=== PATIENT | male | born 1970 | race Caucasian/White ===

== ENCOUNTER → 2023-06-26 | Emergency (ER) | payer SELFPAY ==
[~2023-06-26] MED LIST: DIAZEPAM 10 MG/2 ML INJ SYRINGE ONE; HALOPERIDOL LACT 5 MG/ML INJ ONE; INSULIN REGULAR (HUMAN) 100 UNIT/ML ONE; KETOROLAC 30 MG/ML INJ ONE; MORPHINE 4 MG/ML SYR ONE; NA CHLORIDE 0.9% 1,000 ML ONE; PROMETHAZINE 25 MG TABLET ONE
[2023-06-26 03:34] LABS: Absolute Basophils 0.1 K/uL (0-0.5); Absolute Eosinophils 0.2 K/uL (0-0.5); Absolute Lymphocytes (CBC) 1.6 K/uL (0.7-4.9); Absolute Monocytes 0.5 K/uL (0.1-1.3); Absolute Neutrophil 3.9 K/uL (1.8-8.0); Basophils % 1.9 % (0-1.3); Eosinophils % 3.1 % (0-4.4); Hematocrit 38.8 % (39.6-49.0); Lymphocytes % 25.2 % (15.3-44.8); MCH 30.4 pg (27.0-35.0); MCHC 33.4 g/dL (32.0-36.0); MCV 90.8 fL (80-100); MPV 8.8 fL (7.6-11.3); Monocytes % 7.9 % (3.3-12.3); Neutrophils % 61.9 % (41.7-73.7); Platelets 230 thou/uL (152-406); RBC Red Blood Cell Count 4.27 M/uL (4.33-5.43); Red Cell Distribution Width 13.2 % (12.1-15.2)
[2023-06-26 03:45] LABS: Albumin 3.2 g/dL (3.4-5.0); Albumin/Globulin Ratio 0.8 (1.1-1.8); Anion Gap 14.1 mEq/L (5.0-15.0); Bilirubin Total 0.3 mg/dL (0.2-1.0); Globulin 3.9 g/dL (2.3-3.5); Potassium 4.1 mEq/L (3.5-5.1); Protein, Total 7.1 g/dL (6.4-8.2)
--- NOTE | 2023-06-26 04:47 | EDPHYS ---
Physician Documentation [facility] Name: Pepe Cabrera Age: 52 yrs Sex: Male : 1970 Arrival Date: 06/26/2023 Time: 02:11 Bed 16 Private MD: ED Physician Geraldo Gonzalez HPI: 06/25 02:29 This 52 yrs old Male presents to ER via Unassigned with complaints of Back sp4 Pain. 02:35 52-year-old male presents with acute onset right lower back pain with radiation down sp4 the right leg. Pain started acutely today after patient was doing melecio work at home. . 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 - Social history:: Smoking status: Patient denies any tobacco usage or history of. Patient/guardian denies using alcohol, street drugs. - Family history:: not pertinent. ROS: 02:35 Constitutional: Negative for fever, chills, and weight loss, positive for back pain sp4 02:35 All other systems are negative, Exam: 02:35 Constitutional: This is a well developed, well nourished patient who is awake, alert, sp4 and in no acute distress. Head/Face: Normocephalic, atraumatic. Eyes: Pupils equal round and reactive to light, extra-ocular motions intact. Lids and lashes normal. Conjunctiva and sclera are not injected. Cornea within normal limits. Periorbital areas with no swelling, redness, or edema. ENT: Nares patent. No nasal discharge, no septal abnormalities noted. Tympanic membranes are normal and external auditory canals are clear. Oropharynx with no redness, swelling, or masses, exudates, or evidence of obstruction, uvula midline. Mucous membranes moist. Neck: Trachea midline, no thyromegaly or masses palpated, and no cervical lymphadenopathy. Supple, full range of motion without nuchal rigidity, or vertebral point tenderness. Chest/axilla: Normal chest wall appearance and motion. Nontender with no deformity. No lesions are appreciated. Cardiovascular: Regular rate and rhythm with a normal S1 and S2. No gallops, murmurs, or rubs. Normal PMI, no JVD. No pulse deficits. Respiratory: Lungs have equal breath sounds bilaterally, clear to auscultation and percussion. No rales, rhonchi or wheezes noted. No increased work of breathing, no retractions or nasal flaring. Abdomen/GI: Soft, with normal bowel sounds. No distension or tympany. No guarding or rebound. No evidence of tenderness throughout. Back: No spinal tenderness. No costovertebral tenderness. Skin: Warm, dry with normal turgor. Normal color with no rashes, no lesions, and no evidence of cellulitis. MS/ Extremity: Pulses equal, no cyanosis. Neurovascular intact. Full, normal range of motion. Neuro: Awake and alert, GCS 15, oriented to person, place, time, and situation. Cranial nerves II-XII grossly intact. Motor strength 5/5 in all extremities. Sensory grossly intact. Psych: Awake, alert, with orientation to person, place and time. Behavior, mood, and affect are within normal limits Vital Signs: 02:24 BP 133 / 74; Pulse 107; Resp 18; Temp 97.8; Pulse Ox 97% on R/A; Weight 108.86 kg; pf1 Height 6 ft. 0 in. ; Pain 10/10; 03:03 BP 128 / 81; Pulse 107; Pulse Ox 95% on R/A; Pain 10/10; tm6 03:46 BP 144 / 83; Pulse 104; Pulse Ox 97% on R/A; Pain 9/10; tm6 04:28 BP 146 / 77; Pulse 103; Pulse Ox 96% on R/A; Pain 8/10; tm6 05:21 BP 109 / 82; Pulse 107; Resp 19; Temp 98(TE); Pulse Ox 96% on R/A; Pain 7/10; tm6 02:24 Body Mass Index 32.55 (108.86 kg, 182.88 cm) pf1 02:24 Pain Scale: Adult pf1 03:03 Pain Scale: Adult tm6 03:46 Pain Scale: Adult tm6 04:28 Pain Scale: Adult tm6 05:21 Pain Scale: Adult tm6 [place] Coma Score: 02:35 Eye Response: spontaneous(4). Motor Response: obeys commands(6). Verbal Response: sp4 oriented(5). Total: 15. MDM: 02:35 Patient medically screened. sp4 04:42 Differential diagnosis: Fatigue Fracture Myeloma Osteoporosis ruptured disc, Scoliosis. sp4 Data reviewed: vital signs, nurses notes. Consideration of Admission/Observation Escalation of care including admission/observation considered. ED course: EXAM: CTAbdomen and Pelvis Without Intravenous Contrast CLINICAL HISTORY: spinal and pelvic pain TECHNIQUE: Axial computed tomography images of the abdomen and pelvis without intravenous contrast. Sagittal and coronal reformatted images were created and reviewed. This CT exam was performed using one or more of the following dose reduction techniques: automated exposure control, adjustment of the mA and/or kV according to patient size, and/or use of iterative reconstruction technique. COMPARISON: CTAbdomen Pelvis dated 04/03/2017 FINDINGS: Lung bases: Right basilar subsegmental atelectasis/pleural parenchymal scar. Heart: Coronary artery calcification. ABDOMEN: Liver: The liver is enlarged. Gallbladder and bile ducts: Prior cholecystectomy. Mild biliary dilatation similar to the prior. The common duct measures 10 mm in maximum diameter. Pancreas: Mild pancreatic parenchymal atrophy. No ductal dilation. Spleen: Unremarkable. No splenomegaly. Adrenals: Unremarkable. No mass. Kidneys and ureters: Bilateral perinephric stranding similar to the prior. Small bilateral renal calculi. No hydronephrosis. Stomach and bowel: Moderate stool. No bowel obstruction. No appreciable mucosal thickening. PELVIS: Appendix: Normal caliber appendix. No findings to suggest acute appendicitis. Bladder: The urinary bladder is distended. No stones. Reproductive: Unremarkable as visualized. ABDOMEN and PELVIS: Intraperitoneal space: Unremarkable. No free air. No significant fluid collection. Bones/joints: Multilevel spondylosis. No acute fracture. No dislocation. Soft tissues: Unremarkable. Vasculature: Mild to moderate atherosclerotic disease. No abdominal aortic aneurysm. Lymph nodes: Unremarkable. No enlarged lymph nodes. IMPRESSION: 1. No acute process identified within the abdomen and pelvis. 2. Other findings as above.. ED course: Sugars controlled with IV insulin. Patient has no sign of lower extremity paralysis or other has sign of acute back sprain with some component of right-sided sciatica. Patient is able to stand up and tolerate weight on the right leg. Patient is stable for discharge home with p.o. as needed tramadol ibuprofen and also Flexeril. Will advise 3 days of bedrest. 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 . 06/25 02:35 Order name: CBC with Diff; Complete Time: 03:48 sp4 06/25 02:35 Order name: CMP; Complete Time: 03:48 sp4 06/25 04:40 Order name: Glucose, Ancillary Testing; Complete Time: 04:42 EDMS 06/25 05:19 Order name: Glucose, Ancillary Testing EDMS 06/25 02:55 Order name: CT Abd/Pelvis - Without Contrast sp4 06/25 02:35 Order name: IV Saline Lock; Complete Time: 02:54 sp4 06/25 02:35 Order name: Labs collected and sent; Complete Time: 02:54 sp4 Administered Medications: 02:59 Drug: morphine IVP or IV 8 mg IVP once over 4 mins Route: IVP; Infused Over: 4 mins; tm6 Site: right wrist; 04:46 Follow up: Response: No adverse reaction; No change in condition tm6 02:59 Drug: Diazepam IVP 5 mg IVP once Route: IVP; Site: right wrist; tm6 04:45 Follow up: Response: No adverse reaction tm6 02:59 Drug: Ketorolac IVP 30 mg IVP once Route: IVP; Site: right wrist; tm6 04:46 Follow up: Response: No adverse reaction; No change in condition tm6 03:00 Drug: NS 0.9% IV 1000 ml IV at 1 bolus Per protocol; 1000 mL bolus Route: IV; Rate: 1 tm6 bolus; Site: right wrist; 04:45 Follow up: IV Status: Completed infusion; IV Intake: 1000ml tm6 03:58 Drug: Insulin Regular Human IVP 10 units IVP once {Co-Signature: pf1 (Ashley Bain tm6 RN).} Route: IVP; Site: right wrist; 04:15 Drug: morphine IVP or IV 4 mg IVP once over 4 mins Route: IVP; Infused Over: 4 mins; tm6 Site: right wrist; 04:46 Follow up: Response: No adverse reaction; Pain is decreased tm6 04:15 Drug: Haloperidol IVP 5 mg IVP once Route: IVP; Site: right hand; tm6 04:46 Follow up: Response: No adverse reaction tm6 04:25 Drug: Promethazine PO 25 mg PO once Route: PO; tm6 Point of Care Testing: Blood Glucose: 04:29 Blood Glucose: 282 mg/dL; tm6 Ranges: Critical Glucose Levels:Adult <50 mg/dl or >400 mg/dl <40 mg/dl or >180 mg/dl Disposition Summary: 06/26/23 04:46 Discharge Ordered Notes: Location: Home sp4 Problem: new sp4 Symptoms: have improved sp4 Condition: Stable sp4 Diagnosis - Low back pain sp4 - Type 2 diabetes mellitus with hyperglycemia sp4 - Lower back pain, acute right sciatica, acute back sprain, hyperglycemia associated sp4 with diabetes Followup: sp4 - With: Private Physician - When: 7 - 10 days - Reason: Recheck today's complaints Discharge Instructions: - Discharge Summary Sheet sp4 - Acute Back Pain, Adult sp4 Forms: - Patient Portal Instructions sp4 Prescriptions: - Ibuprofen 800 mg Oral Tablet - take 1 tablet ORAL route every 8 hours As needed take with food; 30 tablet; sp4 Refills: 0, Product Selection Permitted - Cyclobenzaprine 10 mg Oral Tablet - take 1 tablet ORAL route every 8 hours As needed; 30 tablet; Refills: 0, sp4 Product Selection Permitted - Tramadol 50 mg Oral tablet - take 1 tablet ORAL route every 8 hours as needed; 20 tablet; Refills: 0, sp4 Product Selection Permitted Signatures: Dispatcher [employer] Ashley Tate RN RN pf1 Geraldo Gonzalez MD MD sp4 Shreyas Rivero RN RN tm6 Ashley Bain RN pf1
--- NOTE | 2023-06-26 04:47 | ER ---
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 02:24 Coronavirus screen: Client denies travel out of the [place] in the last 14 days. At this pf1 time, the client does not indicate any symptoms associated with coronavirus-19. Ebola Screen: Patient negative for fever greater than or equal to 101.5 degrees Fahrenheit, and additional compatible Ebola Virus Disease symptoms. Initial Sepsis Screen: Does the patient meet any 2 criteria? HR > 90 bpm. No. Patient's initial sepsis screen is negative. Does the patient have a suspected source of infection? No. Patient's initial sepsis screen is negative. Risk Assessment: Do you want to hurt yourself or someone else? Patient reports no desire to harm self or others. 02:24 Method Of Arrival: Wheelchair pf1 02:24 Acuity: LAURENT 3 pf1 05:22 Onset of symptoms is unknown. tm6 Triage Assessment: 02:25 General: Appears in no apparent distress. uncomfortable, well groomed, well developed, pf1 Behavior is calm, cooperative, appropriate for age, quiet. 02:25 Pain: Complains of pain in right lower back pain that radiates down right leg and foot pf1 Pain currently is 10 out of 10 on a pain scale. Pain began 2-3 days ago. Respiratory: No deficits noted. Airway is patent Respiratory effort is even, unlabored, Respiratory pattern is regular, symmetrical. Musculoskeletal: Circulation, motion, and sensation intact. Capillary refill < 3 seconds, Reports pain in right lower back pain that radiates down right leg and foot. 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 - Social history:: Smoking status: Patient denies any tobacco usage or history of. Patient/guardian denies using alcohol, street drugs. - Family history:: not pertinent. Screenin:10 [facility] ED Fall Risk Assessment (Adult) History of falling in the last 3 months, tm6 including since admission No falls in past 3 months (0 pts) Confusion or Disorientation No (0 pts) Intoxicated or Sedated No (0 pts) Impaired Gait No (0 pts) Mobility Assist Device Used No (0 pt) Altered Elimination No (0 pt) Score/Fall Risk Level 0 - 2 = Low Risk Oriented to surroundings, Maintained a safe environment. Abuse screen: Denies threats or abuse. Denies injuries from another. Nutritional screening: No deficits noted. Tuberculosis screening: No symptoms or risk factors identified. Assessment: 03:03 General: Appears distressed, uncomfortable, Behavior is calm, cooperative. Pain: tm6 Complains of pain in back Pain currently is 10 out of 10 on a pain scale. Quality of pain is described as aching, sharp. Neuro: Level of Consciousness is awake, alert, obeys commands, Oriented to person, place, time, situation. Cardiovascular: Capillary refill < 3 seconds Patient's skin is warm and dry. Respiratory: Airway is patent Respiratory effort is even, unlabored, Respiratory pattern is regular, symmetrical. GI: Abdomen is round non-distended. : No signs and/or symptoms were reported regarding the genitourinary system. EENT: No signs and/or symptoms were reported regarding the EENT system. Derm: No signs and/or symptoms reported regarding the dermatologic system. Musculoskeletal: Reports pain in back Pain is 10 out of 10 on a pain scale. 03:47 Reassessment: Patient and/or family updated on plan of care and expected duration. Pain tm6 level reassessed. Patient is alert, oriented x 3, equal unlabored respirations, skin warm/dry/pink. Patient states symptoms have not improved. 04:29 Reassessment: Patient and/or family updated on plan of care and expected duration. Pain tm6 level reassessed. Patient is alert, oriented x 3, equal unlabored respirations, skin warm/dry/pink. Patient states symptoms have not improved. 05:21 Reassessment: Patient and/or family updated on plan of care and expected duration. Pain tm6 level reassessed. Patient is alert, oriented x 3, equal unlabored respirations, skin warm/dry/pink. Vital Signs: 02:24 BP 133 / 74; Pulse 107; Resp 18; Temp 97.8; Pulse Ox 97% on R/A; Weight 108.86 kg; pf1 Height 6 ft. 0 in. ; Pain 10/10; 03:03 BP 128 / 81; Pulse 107; Pulse Ox 95% on R/A; Pain 10/10; tm6 03:46 BP 144 / 83; Pulse 104; Pulse Ox 97% on R/A; Pain 9/10; tm6 04:28 BP 146 / 77; Pulse 103; Pulse Ox 96% on R/A; Pain 8/10; tm6 05:21 BP 109 / 82; Pulse 107; Resp 19; Temp 98(TE); Pulse Ox 96% on R/A; Pain 7/10; tm6 02:24 Body Mass Index 32.55 (108.86 kg, 182.88 cm) pf1 02:24 Pain Scale: Adult pf1 03:03 Pain Scale: Adult tm6 03:46 Pain Scale: Adult tm6 04:28 Pain Scale: Adult tm6 05:21 Pain Scale: Adult tm6 [place] Coma Score: 02:35 Eye Response: spontaneous(4). Motor Response: obeys commands(6). Verbal Response: sp4 oriented(5). Total: 15. ED Course: 02:19 Patient arrived in ED. gm2 02:29 Geraldo Gonzalez MD is Attending Physician. sp4 02:47 Shreyas Rivero, STEPHEN is Primary Nurse. tm6 02:53 Inserted saline lock: 20 gauge in right forearm, using aseptic technique. Blood oe collected. 02:53 Initial lab(s) drawn, by me. oe 02:54 CMP Sent. oe 02:54 CBC with Diff Sent. oe 02:58 Triage completed. pf1 03:10 Patient has correct armband on for positive identification. Placed in gown. Bed in low tm6 position. Call light in reach. Side rails up X2. Provided Education on: plan of care. Client placed on continuous cardiac and pulse oximetry monitoring. NIBP monitoring applied. Pulse ox on. NIBP on. Door closed. Noise minimized. Lights dimmed. Pillow given. 03:10 Arm band placed on left wrist. tm6 03:32 CT Abd/Pelvis - Without Contrast In Process Unspecified. EDMS 05:21 No provider procedures requiring assistance completed. IV discontinued, intact, tm6 bleeding controlled, No redness/swelling at site. Pressure dressing applied. Administered Medications: 02:59 Drug: morphine IVP or IV 8 mg IVP once over 4 mins Route: IVP; Infused Over: 4 mins; tm6 Site: right wrist; 04:46 Follow up: Response: No adverse reaction; No change in condition tm6 02:59 Drug: Diazepam IVP 5 mg IVP once Route: IVP; Site: right wrist; tm6 04:45 Follow up: Response: No adverse reaction tm6 02:59 Drug: Ketorolac IVP 30 mg IVP once Route: IVP; Site: right wrist; tm6 04:46 Follow up: Response: No adverse reaction; No change in condition tm6 03:00 Drug: NS 0.9% IV 1000 ml IV at 1 bolus Per protocol; 1000 mL bolus Route: IV; Rate: 1 tm6 bolus; Site: right wrist; 04:45 Follow up: IV Status: Completed infusion; IV Intake: 1000ml tm6 03:58 Drug: Insulin Regular Human IVP 10 units IVP once {Co-Signature: pf1 (Ashley Bain tm6 RN).} Route: IVP; Site: right wrist; 04:15 Drug: morphine IVP or IV 4 mg IVP once over 4 mins Route: IVP; Infused Over: 4 mins; tm6 Site: right wrist; 04:46 Follow up: Response: No adverse reaction; Pain is decreased tm6 04:15 Drug: Haloperidol IVP 5 mg IVP once Route: IVP; Site: right hand; tm6 04:46 Follow up: Response: No adverse reaction tm6 04:25 Drug: Promethazine PO 25 mg PO once Route: PO; tm6 Medication: 05:22 VIS not applicable for this client. tm6 Point of Care Testing: Blood Glucose: 04:29 Blood Glucose: 282 mg/dL; tm6 Ranges: Intake: 04:45 IV: 1000ml; Total: 1000ml. tm6 Outcome: 04:46 Discharge ordered by MD. peraza4 05:22 Discharged to home via wheelchair, with family, tm6 05:22 Condition: stable 05:22 Discharge instructions given to patient, Instructed on discharge instructions, follow up and referral plans. medication usage, Demonstrated understanding of instructions, follow-up care, medications, Prescriptions given X 3, 05:22 Patient left the ED. tm6 Signatures: Dispatcher [employer] EDMS Marcio Ledezma Pamala, RN RN pf1 Geraldo Gonzalez MD MD sp4 Gladys Aguero Tawney, RN RN tm6 Ashley Bain RN pf1
[2023-06-26 05:43] VITALS: BP 109/82; TEMP 98; O2SAT 96
--- NOTE | 2023-06-26 11:25 | RAD REPORT ---
EXAM DESCRIPTION: CT - Abdomen Pelvis Wo Contrast - 06/26/2023 6:49 am CLINICAL HISTORY: Spinal and pelvic pain TECHNIQUE: Axial computed tomography images of the abdomen and pelvis without intravenous contrast. Sagittal and coronal reformatted images were created and reviewed. This CT exam was performed usi ng one or more of the following dose reduction techniques: automated exposure control, adjustment o f the mA and/or kV according to patient size, and/or use of iterative reconstruction technique. COMPARISON: CT Abdomen Pelvis dated 04/03/2017 FINDINGS: Lung bases: Right basilar subsegmental atelectasis/pleural parenchymal scar. Heart: Coronary artery calcification. ABDOMEN: Liver: The liver is enlarged. Gallbladder and bile ducts: Prior cholecystectomy. Mild biliary dilatation similar to the prior. Th e common duct measures 10 mm in maximum diameter. Pancreas: Mild pancreatic parenchymal atrophy. No ductal dilation. Spleen: Unremarkable. No splenomegaly. Adrenals: Unremarkable. No mass. Kidneys and ureters: Bilateral perinephric stranding similar to the prior. Small bilateral renal ca lculi. No hydronephrosis. Stomach and bowel: Moderate stool. No bowel obstruction. No appreciable mucosal thickening. PELVIS: Appendix: Normal caliber appendix. No findings to suggest acute appendicitis. Bladder: The urinary bladder is distended. No stones. Reproductive: Unremarkable as visualized. ABDOMEN and PELVIS: Intraperitoneal space: Unremarkable. No free air. No significant fluid collection. Bones/joints: Multilevel spondylosis. No acute fracture. No dislocation. Soft tissues: Unremarkable. Vasculature: Mild to moderate atherosclerotic disease. No abdominal aortic aneurysm. Lymph nodes: Unremarkable. No enlarged lymph nodes. IMPRESSION: 1. No acute process identified within the abdomen and pelvis. 2. Other findings as above. Electronically signed by: Dario Vasquez MD 06/26/2023 03:57 AM CDT Due to temporary technical issues with the PACS/Fluency reporting system, reports are being signed by the in house radiologist without review as a courtesy to ensure prompt reporting. The interpreting r adiologist is fully responsible for the content of the report.
== END ==
LOC: ER 02:11
DX: M54.31 Sciatica, right side (principal); S33.5XXA Sprain of ligaments of lumbar spine, initial encounter; E11.65 Type 2 diabetes mellitus with hyperglycemia
CPT/HCPCS: 36415; 74176; 80053; 82947; 85025; J1630; J1815; J3360; J7030; Q0169

== ENCOUNTER 2024-01-01 14:07 | Emergency (ER) | payer BC, OTHER ==
[2024-01-01] MEDS ORDERED: ONDANSETRON 4 MG/2 ML VIAL ONE (16:15)
[2024-01-01] MEDS ORDERED: MORPHINE 4 MG/ML SYR ONE ×2 (16:15→18:19)
[2024-01-01] MEDS ORDERED: DIAZEPAM 10 MG/2 ML INJ SYRINGE ONE (17:22)
--- NOTE | 2024-01-01 17:56 | RAD REPORT ---
EXAMINATION: CT LUMBAR SPINE WITHOUT CONTRAST CLINICAL INDICATION: Male, 53 years old. Pain;Radiculopathy TECHNIQUE: Axial CT images were obtained through the lumbar spine in soft tissue and bone windows wit hout intravenous contrast. Coronal and Sagittal reformatted images were created from the data set. One or more of the following dose reduction techniques were used: Automated exposure control, adjustm ent of the mA and/ or kV according to patient size, and/or iterative reconstruction. Unless otherwise specified, incidental findings do not require dedicated imaging follow-up. COMPARISON: 09/04/[address] 06/26/2023 CT abdomen pelvis FINDINGS: For purposes of this dictation, it is assumed that there are 5 non rib-bearing lumbar type vertebrae, and the most caudal fully segmented lumbar vertebra is labeled L5. ALIGNMENT: The lumbar spine demonstrates normal alignment without scoliosis or spondylolisthesis. BONES: Transitional anatomy again seen, with large right L5 transverse process with near complete fus ion with sacral alar. Somewhat diminutive appearance of the L5-S1 disc. No significant soft tissue abnormalities. No aggressive osseous lesions. DISCS: Intervertebral disc space heights are maintained. LEVELS: Broad-based disc bulges at L3-4 and L4-5, with asymmetric right subacromial/foraminal disc he rniation, asymmetrically narrowing the lateral recess. Bilateral neural foraminal narrowing, moderate, both levels, and mild degrees of neural foraminal narrowing at L2-3 and L5-S1. No other sig nificant bony spinal canal or neural foraminal stenosis. No visualized abnormality within the spinal canal. SOFT TISSUE: No soft tissue abnormalities. IMPRESSION: Stable multilevel degenerative changes with degrees of neural foraminal narrowing, up to moderate robert aterally at L3-4 and L4-5. If there is persistent concern for radiculopathy, MRI lumbar spine with provided assessment 4 degrees of neural foraminal narrowing.
[2024-01-01] MEDS ORDERED: KETOROLAC 30 MG/ML INJ ONE (19:28)
--- NOTE | 2024-01-01 19:43 | ER ---
Nurse's Notes [facility] Name: Pepe Cabrera Age: 53 yrs Sex: Male : 1970 Arrival Date: 01/01/2024 Time: 14:07 Bed 9 Private MD: Diagnosis: Lumbago with sciatica, right side Presentation: 12/31 14:19 Chief complaint: Patient states: THIS AM WOKE UP UNABLE TO WALK DUE TO BACK PAIN. db STATES HAS CHRONIC BACK PAIN AND IS SIMILAR TO PREVIOUS BACK PAIN. TOOK TYLENOL FOR PAIN. Coronavirus screen: Client denies travel out of the [place] in the last 14 days. At this time, the client does not indicate any symptoms associated with coronavirus-19. Ebola Screen: Patient negative for fever greater than or equal to 101.5 degrees Fahrenheit, and additional compatible Ebola Virus Disease symptoms Patient denies exposure to infectious person. Patient denies travel to an Ebola-affected area in the 21 days before illness onset. No symptoms or risks identified at this time. Initial Sepsis Screen: Does the patient meet any 2 criteria? No. Patient's initial sepsis screen is negative. Does the patient have a suspected source of infection? No. Patient's initial sepsis screen is negative. Risk Assessment: Do you want to hurt yourself or someone else? Patient reports no desire to harm self or others. Onset of symptoms was January 01, 2024. 14:19 Method Of Arrival: Wheelchair db 14:19 Acuity: LAURENT 4 db Triage Assessment: 14:21 General: Appears in no apparent distress. uncomfortable, Behavior is calm, cooperative. db Pain: Complains of pain in back. Neuro: Level of Consciousness is awake, alert, obeys commands, Oriented to person, place, time, situation. Respiratory: Airway is patent Respiratory effort is even, unlabored, Respiratory pattern is regular, symmetrical. Musculoskeletal: Circulation, motion, and sensation intact. Capillary refill < 3 seconds. 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 - Infectious Disease History:: Denies. - Social history:: Smoking status: Patient reports use of chewing tobacco. Screenin:58 [facility] ED Fall Risk Assessment (Adult) History of falling in the last 3 months, me1 including since admission No falls in past 3 months (0 pts) Confusion or Disorientation No (0 pts) Intoxicated or Sedated No (0 pts) Impaired Gait No (0 pts) Mobility Assist Device Used No (0 pt) Altered Elimination No (0 pt) Score/Fall Risk Level 0 - 2 = Low Risk Maintained a safe environment, Provided non-skid footwear, Hourly rounding (assess needs \T\ fall precautionary measures) done. Abuse screen: Denies threats or abuse. Nutritional screening: No deficits noted. Tuberculosis screening: No symptoms or risk factors identified. Assessment: 15:58 General: Appears uncomfortable, well developed, well nourished, Behavior is calm, me1 cooperative, appropriate for age, Reports THIS AM WOKE UP UNABLE TO WALK DUE TO BACK PAIN. STATES HAS CHRONIC BACK PAIN AND IS SIMILAR TO PREVIOUS BACK PAIN. TOOK TYLENOL FOR PAIN. Pain: Complains of pain in back Pain radiates to right leg Pain currently is 8 out of 10 on a pain scale. Quality of pain is described as sharp, shooting, Is continuous. Neuro: Level of Consciousness is awake, alert, obeys commands, Oriented to person, place, time, situation, Appropriate for age. Cardiovascular: Patient's skin is warm and dry. Respiratory: Airway is patent Respiratory effort is even, unlabored, Respiratory pattern is regular, symmetrical. GI: No signs and/or symptoms were reported involving the gastrointestinal system. : No signs and/or symptoms were reported regarding the genitourinary system. EENT: No signs and/or symptoms were reported regarding the EENT system. Derm: Skin is intact, is healthy with good turgor, Skin is pink, warm \T\ dry. Musculoskeletal: Reports pain in back. Vital Signs: 14:19 BP 137 / 87; Pulse 106; Resp 18; Temp 99.1(O); Pulse Ox 99% ; Weight 113.4 kg; Height 6 db ft. 0 in. ; Pain 8/10; 17:08 Pain 8/10; me1 17:08 BP 153 / 96; Pulse 96; Resp 17; Pulse Ox 98% ; Pain 9/10; me1 18:00 BP 145 / 85; Pulse 98; Resp 16; Pulse Ox 98% ; me1 18:25 Pain 7/10; me1 19:00 BP 134 / 77; Pulse 97; Resp 17; Temp 98.1; Pulse Ox 98% ; me1 19:20 Pain 8/10; me1 20:00 Pain 7/10; me1 20:00 BP 138 / 79; Pulse 95; Resp 17; Temp 98.4; Pulse Ox 98% ; me1 14:19 Body Mass Index 33.91 (113.40 kg, 182.88 cm) db 14:19 Pain Scale: Adult db 17:08 Pain Scale: Adult me1 17:08 Pain Scale: Adult me1 18:25 Pain Scale: Adult me1 19:20 Pain Scale: Adult me1 20:00 Pain Scale: Adult me1 ED Course: 14:11 Patient arrived in ED. mr 14:21 Triage completed. db 14:22 Arm band placed on left wrist. db 14:31 Chin Kee NP is PHCP. pm1 14:31 Christo Haney MD is Attending Physician. pm1 15:57 Jory Stone RN is Primary Nurse. me1 15:58 Patient has correct armband on for positive identification. Bed in low position. Call me1 light in reach. Side rails up X 1. Provided Education on: POC. Verbalized understanding.. 15:58 No provider procedures requiring assistance completed. Patient did not have IV access me1 during this emergency room visit. 16:26 Inserted saline lock: 20 gauge in right antecubital area, using aseptic technique. me1 16:56 CT Lumbar Spine Wo Con In Process Unspecified. EDMS Administered Medications: 16:26 Drug: morphine IVP or IV 4 mg IVP once over 4 mins Route: IVP; Infused Over: 4 mins; me1 Site: right antecubital; 17:08 Follow up: Pain 8/10 Adult; Response: No adverse reaction; Pain is unchanged, physician me1 notified 16:26 Drug: Ondansetron IVP 4 mg IVP once; over 2 minutes Route: IVP; Site: right antecubital;me1 17:05 Follow up: Response: No adverse reaction; Nausea is decreased me1 17:29 Drug: Diazepam IVP 5 mg IVP once Route: IVP; Site: right antecubital; me1 18:25 Follow up: Pain 7/10 Adult; Response: No adverse reaction; Pain is decreased me1 18:25 Drug: morphine IVP or IV 4 mg IVP once over 4 mins Route: IVP; Infused Over: 4 mins; me1 Site: right antecubital; 19:20 Follow up: Pain 8/10 Adult; Response: No adverse reaction; Pain is decreased me1 19:32 Drug: Ketorolac IM 60 mg IM once Route: IM; Site: left deltoid; me1 20:00 Follow up: Pain 7/10 Adult; Response: No adverse reaction; Pain is decreased me1 Medication: 15:58 VIS not applicable for this client. me1 Outcome: 19:43 Discharge ordered by . pm1 20:09 Discharged to home via wheelchair, with significant other, me1 20:09 Condition: stable 20:09 Discharge instructions given to patient, significant other, Instructed on discharge instructions, follow up and referral plans. medication usage, Demonstrated understanding of instructions, follow-up care, medications, Prescriptions given X 2, 20:10 Patient left the ED. me1 Signatures: Dispatcher [employer] EDOH WilliamsonJahaira, Reg Reg mr Chilango Chin, BEAUT[employer] SCHOOL INSTRUCTOR [employer] SCHOOL INSTRUCTOR pm1 Leana Han RN RN db Jory Stone RN RN me1 Corrections: (The following items were deleted from the chart) 15:58 14:19 Chief complaint: Patient states: THIS AM WOKE UP UNABLE TO WALK DUE TO BACK PAIN. me1 STATES HAS CHRONIC BACK PAIN AND IS SIMILAR TO PREVIOUS BACK PAIN. TOOK TYLENOL FOR PAIN db 16:01 15:58 General: Appears me1 me1
--- NOTE | 2024-01-01 19:43 | EDPHYS ---
Physician Documentation [facility] Name: Pepe Cabrera Age: 53 yrs Sex: Male : 1970 Arrival Date: 01/01/2024 Time: 14:07 Bed 9 Private MD: ED Physician Christo Haney HPI: 12/31 15:50 This 53 yrs old Male presents to ER via Wheelchair with complaints of Back Pain. pm1 15:50 The patient presents with pain that is chronic, with no known mechanism of injury. The pm1 symptoms are located in the low back. Onset: The symptoms/episode began/occurred 9 month(s) ago. The pain radiates to the right leg. Associated signs and symptoms: Pertinent negatives: fever, incontinence, numbness, tingling. Modifying factors: The patient symptoms are alleviated by lying on his left side, the patient symptoms are aggravated by laying flat on his back. Severity of symptoms: in the emergency department the symptoms are actually worse. The patient has been recently seen by a physician: Seen by neurosurgeon in the area last week. Patient reports no surgical intervention recommended, management with pain medications. 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 - Infectious Disease History:: Denies. - Social history:: Smoking status: Patient reports use of chewing tobacco. ROS: 15:50 Constitutional: Negative for fever, chills, and weight loss, Cardiovascular: Negative pm1 for chest pain, palpitations, and edema, Respiratory: Negative for shortness of breath, cough, wheezing, and pleuritic chest pain, 15:50 : Negative for injury, bleeding, discharge, and swelling, incontinence MS/Extremity: Negative for injury and deformity, Skin: Negative for injury, rash, and discoloration, 15:50 Neuro: Negative for headache, weakness, numbness, tingling, and seizure, 15:50 Abdomen/GI: Negative for incontinence of stool, 15:50 Back: Positive for of the lumbar area, pain, 15:50 All other systems are negative, Exam: 15:50 Constitutional: This is a well developed, well nourished patient who is awake, alert, pm1 and in no acute distress. Head/Face: Normocephalic, atraumatic. 15:50 Skin: Warm, dry with normal turgor. Normal color with no rashes, no lesions, and no evidence of cellulitis. 15:50 Cardiovascular: Exam negative for acute changes, 15:50 Respiratory: Exam negative for acute changes, 15:50 Back: vertebral tenderness, is appreciated at lumbar spine, reproducible pain to right gluteal area, Straight leg raises: right lower extremity illicits pain, at 30 degrees, left lower extremity illicits pain, at 45 degrees, 15:50 Neuro: Exam negative for acute changes, Orientation: is normal, Mentation: is normal, Motor: moves all fours, Sensation: no obvious gross deficits, Vital Signs: 14:19 BP 137 / 87; Pulse 106; Resp 18; Temp 99.1(O); Pulse Ox 99% ; Weight 113.4 kg; Height 6 db ft. 0 in. ; Pain 8/10; 17:08 Pain 8/10; me1 17:08 BP 153 / 96; Pulse 96; Resp 17; Pulse Ox 98% ; Pain 9/10; me1 18:00 BP 145 / 85; Pulse 98; Resp 16; Pulse Ox 98% ; me1 18:25 Pain 7/10; me1 19:00 BP 134 / 77; Pulse 97; Resp 17; Temp 98.1; Pulse Ox 98% ; me1 19:20 Pain 8/10; me1 20:00 Pain 7/10; me1 20:00 BP 138 / 79; Pulse 95; Resp 17; Temp 98.4; Pulse Ox 98% ; me1 14:19 Body Mass Index 33.91 (113.40 kg, 182.88 cm) db 14:19 Pain Scale: Adult db 17:08 Pain Scale: Adult me1 17:08 Pain Scale: Adult me1 18:25 Pain Scale: Adult me1 19:20 Pain Scale: Adult me1 20:00 Pain Scale: Adult me1 MDM: 14:33 Patient medically screened. pm1 15:51 Data reviewed: vital signs. pm1 15:51 ED course: Patient with history of chronic back pain for the past 6 months. He reports pm1 pain that is severe enough that he is unable to stand up today. 17:24 ED course: Patient reports pain improvement with morphine in the ER but increased pain pm1 with having to lay flat for the CT. Will give patient valium IV for muscle spasming pain. 19:20 Management of patient was discussed with the following: Attending Dr Haney. Reviewed pm1 CT and patient can be discharged home for follow up with pain management/surgeon. 19:41 I considered the following discharge prescriptions or medication management in the pm1 emergency department Medications were administered in the Emergency Department. See MAR. Test considered but Not performed: MRI: patient can follow up with pain management or orthopedic/neurosurgeon for further evaluation and treatment. Care significantly affected by the following chronic conditions: chronic back pain. 12/31 15:50 Order name: CT Lumbar Spine Wo Con; Complete Time: 18:02 pm1 12/31 16:02 Order name: IV Saline Lock; Complete Time: 16:26 pm1 Administered Medications: 16:26 Drug: morphine IVP or IV 4 mg IVP once over 4 mins Route: IVP; Infused Over: 4 mins; me1 Site: right antecubital; 17:08 Follow up: Pain 8/10 Adult; Response: No adverse reaction; Pain is unchanged, physician me1 notified 16:26 Drug: Ondansetron IVP 4 mg IVP once; over 2 minutes Route: IVP; Site: right antecubital;me1 17:05 Follow up: Response: No adverse reaction; Nausea is decreased me1 17:29 Drug: Diazepam IVP 5 mg IVP once Route: IVP; Site: right antecubital; me1 18:25 Follow up: Pain 7/10 Adult; Response: No adverse reaction; Pain is decreased me1 18:25 Drug: morphine IVP or IV 4 mg IVP once over 4 mins Route: IVP; Infused Over: 4 mins; me1 Site: right antecubital; 19:20 Follow up: Pain 8/10 Adult; Response: No adverse reaction; Pain is decreased me1 19:32 Drug: Ketorolac IM 60 mg IM once Route: IM; Site: left deltoid; me1 20:00 Follow up: Pain 7/10 Adult; Response: No adverse reaction; Pain is decreased me1 Disposition Summary: 01/01/24 19:43 Discharge Ordered Notes: Location: Home pm1 Problem: new pm1 Symptoms: have improved pm1 Condition: Stable pm1 Diagnosis - Lumbago with sciatica, right side pm1 Followup: pm1 - With: Emergency Department - When: As needed - Reason: Worsening of condition Followup: pm1 - With: Private Physician - When: 2 - 3 days - Reason: Recheck today's complaints, Continuance of care, Re-evaluation by your physician Discharge Instructions: - Discharge Summary Sheet pm1 - Chronic Back Pain pm1 - Sciatica pm1 Forms: - Medication Reconciliation Form pm1 - Antibiotic Education pm1 - Prescription Opioid Use pm1 - Patient Portal Instructions pm1 - Leadership Thank You Letter pm1 Prescriptions: - acetaminophen-codeine 300-30 mg Oral tablet - take 1 tablet ORAL route every 6 hours; 12 tablet; Refills: 0, Product pm1 Selection Permitted - Cyclobenzaprine 10 mg Oral Tablet - take 1 tablet ORAL route every 8 hours As needed; 30 tablet; Refills: 0, pm1 Product Selection Permitted Signatures: Dispatcher [employer] Chin Olvera NP RECYCLING OPERATOR pm1 Leana Han, RN RN Jory Stone RN RN ny1
[2024-01-01 20:41] VITALS: O2SAT 98
[2024-01-01 20:50] VITALS: BP 138/79; TEMP 98.4
== END 2024-01-01 20:10 | disposition home or self-care (01) ==
LOC: ER 14:07
DX: M54.41 Lumbago with sciatica, right side (principal); F17.220 Nicotine dependence, chewing tobacco, uncomplicated
CPT/HCPCS: 72131; 96372; 96374; 96375; 99284; J2405; J3360

== ENCOUNTER 2024-04-19 15:54 | Emergency (ER) | payer SELFPAY ==
[2024-04-19 17:00] LABS: Absolute Basophils 0.1 K/uL (0-0.5); Absolute Lymphocytes (CBC) 1.4 K/uL (0.7-4.9); Absolute Monocytes 0.9 K/uL (0.1-1.3); Basophils % 0.6 % (0-1.3); Eosinophils % 0.4 % (0-4.4); Hematocrit 36.3 % (39.6-49.0); Hemoglobin 11.8 g/dL (13.6-17.9); Lymphocytes % 11.2 % (15.3-44.8); MCH 29.9 pg (27.0-35.0); MCHC 32.6 g/dL (32.0-36.0); MCV 91.6 fL (80-100); MPV 8.7 fL (7.6-11.3); Monocytes % 6.9 % (3.3-12.3); Neutrophils % 80.9 % (41.7-73.7); Platelets 262 thou/uL (152-406); RBC Red Blood Cell Count 3.96 M/uL (4.33-5.43); Red Cell Distribution Width 13.6 % (12.1-15.2)
[2024-04-19 17:14] LABS: PT Prothrombin Time 11.2 SECONDS (9.4-12.5); PTT, Activated Partial Thromb 30.5 SECONDS (24.3-36.9)
[2024-04-19 17:28] LABS: Albumin/Globulin Ratio 0.6 (1.1-1.8); Anion Gap 10.3 mEq/L (5.0-15.0); Bilirubin Total 0.4 mg/dL (0.2-1.0); Globulin 5.4 g/dL (2.3-3.5); Potassium 4.3 mEq/L (3.5-5.1); Protein, Total 8.4 g/dL (6.4-8.2)
[2024-04-19] MEDS ORDERED: VANCOMYCIN 1 GM/VIAL ONE (17:28)
[2024-04-19] MEDS ORDERED: FENTANYL CITR 100 MCG/2 ML ONE ×2 (17:28→20:51)
[2024-04-19] MEDS ORDERED: NA CHLORIDE 0.9% 250 ML ONE (17:29)
[2024-04-19] MEDS ORDERED: INSULIN REGULAR (HUMAN) 100 UNIT/ML ONE (17:29)
--- NOTE | 2024-04-19 17:46 | ER ---
Nurse's Notes [facility] Name: Pepe Cabrera Age: 53 yrs Sex: Male : 1970 Arrival Date: 04/19/2024 Time: 15:54 Bed 17 Private MD: Diagnosis: Diabetes mellitus due to underlying condition with hyperglycemia;Cellulitis of right upper limb-right hand Presentation: 04/19 16:01 Chief complaint: Patient states: RIGHT HAND SWELLING AND PAIN X 2 DAYS STATES HAD A CUT db YESTERDAY GOT WORSE AND TODAY WITH REDNESS. NOTED WOUND TO RIGHT MIDDLE FINGER WITH SMALL YELLOW OOZING. NOTED RIGHT HAND IS SWOLLEN. STATES HAPPENED TO LEFT HAND AND HAS PARTIAL FINGER AMPUTATION OF LEFT MIDDLE FINGER. HX OF DIABETES. Coronavirus screen: Client denies travel out of the [place] in the last 14 days. At this time, the client does not indicate any symptoms associated with coronavirus-19. Ebola Screen: Patient negative for fever greater than or equal to 101.5 degrees Fahrenheit, and additional compatible Ebola Virus Disease symptoms Patient denies exposure to infectious person. Patient denies travel to an Ebola-affected area in the 21 days before illness onset. No symptoms or risks identified at this time. Initial Sepsis Screen: Does the patient meet any 2 criteria? No. Patient's initial sepsis screen is negative. Does the patient have a suspected source of infection? No. Patient's initial sepsis screen is negative. Risk Assessment: Do you want to hurt yourself or someone else? Patient reports no desire to harm self or others. Onset of symptoms was April 19, 2024. 16:01 Method Of Arrival: Wheelchair db 16:01 Acuity: LAURENT 3 db Triage Assessment: 16:04 General: Appears in no apparent distress. uncomfortable, Behavior is calm, cooperative. db Pain: Complains of pain in right middle finger, dorsal aspect of distal phalanx of right middle finger, dorsal aspect of middle phalanx of right middle finger, dorsal aspect of proximal phalanx of right middle finger and right middle fingernail. Neuro: Level of Consciousness is awake, alert, obeys commands, Oriented to person, place, time, situation. Derm: Wound noted right hand. 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 - Infectious Disease History:: Denies. - Social history:: Smoking status: unknown. Screenin:30 [facility] ED Fall Risk Assessment (Adult) History of falling in the last 3 months, me1 including since admission No falls in past 3 months (0 pts) Confusion or Disorientation No (0 pts) Intoxicated or Sedated No (0 pts) Impaired Gait No (0 pts) Mobility Assist Device Used No (0 pt) Altered Elimination No (0 pt) Score/Fall Risk Level 0 - 2 = Low Risk Maintained a safe environment, Provided non-skid footwear, Hourly rounding (assess needs \\T\\ fall precautionary measures) done. Abuse screen: Denies threats or abuse. Nutritional screening: No deficits noted. Tuberculosis screening: No symptoms or risk factors identified. Assessment: 17:30 General: Appears uncomfortable, unkempt, well developed, Behavior is calm, cooperative, me1 appropriate for age, Reports RIGHT HAND SWELLING AND PAIN X 2 DAYS STATES HAD A CUT YESTERDAY GOT WORSE AND TODAY WITH REDNESS. NOTED WOUND TO RIGHT MIDDLE FINGER WITH SMALL YELLOW OOZING. NOTED RIGHT HAND IS SWOLLEN. STATES HAPPENED TO LEFT HAND AND HAS PARTIAL FINGER AMPUTATION OF LEFT MIDDLE FINGER. HX OF DIABETES. Pain: Complains of pain in right hand and right middle finger Pain does not radiate. Pain currently is 8 out of 10 on a pain scale. Quality of pain is described as pressure, throbbing, Pain began gradually, 1 day ago. Is continuous. Neuro: Level of Consciousness is awake, alert, obeys commands, Oriented to person, place, time, situation, Appropriate for age. Cardiovascular: Patient's skin is warm and dry. Respiratory: Airway is patent Trachea midline Respiratory effort is even, unlabored, Respiratory pattern is regular, symmetrical. GI: No signs and/or symptoms were reported involving the gastrointestinal system. : No signs and/or symptoms were reported regarding the genitourinary system. EENT: No signs and/or symptoms were reported regarding the EENT system. Derm: Skin is healthy with good turgor, Skin is normal, Wound noted right middle finger. Musculoskeletal: Swelling present in right hand and right middle fingernail and dorsal aspect of proximal phalanx of right middle finger and dorsal aspect of middle phalanx of right middle finger and dorsal aspect of distal phalanx of right middle finger and right middle finger. Injury Description: RIGHT HAND SWELLING AND PAIN X 2 DAYS STATES HAD A CUT YESTERDAY GOT WORSE AND TODAY WITH REDNESS. NOTED WOUND TO RIGHT MIDDLE FINGER WITH SMALL YELLOW OOZING. NOTED RIGHT HAND IS SWOLLEN. STATES HAPPENED TO LEFT HAND AND HAS PARTIAL FINGER AMPUTATION OF LEFT MIDDLE FINGER. HX OF DIABETES. 19:26 Reassessment: Tried to call report to [facility], no answer. me1 19:35 Reassessment: Called report, asked to call back in 5 minutes because the patient hasnt me1 been assigned yet. 19:46 Reassessment: Called to give report and was told the patient is "being re-routed" and me1 to call back in 5 minutes so the charge nurse can clarify. Vital Signs: 16:01 BP 135 / 88; Pulse 103; Resp 18; Temp 98; Pulse Ox 98% ; Weight 117.93 kg; Height 6 ft. db 0 in. ; 17:52 Pain 3/10; me1 18:00 BP 135 / 79; Pulse 97; Resp 19; Pulse Ox 97% ; me1 19:00 BP 155 / 95; Pulse 94; Resp 19; Pulse Ox 100% ; me1 20:00 BP 152 / 91; Pulse 97; Resp 16; Pulse Ox 97% ; me1 20:30 BP 145 / 76; Pulse 97; Resp 16; Temp 98.3; Pulse Ox 97% ; me1 16:01 Body Mass Index 35.26 (117.93 kg, 182.88 cm) db 17:52 Pain Scale: Adult sc1 ED Course: 15:56 Patient arrived in ED. mr 16:04 Triage completed. db 16:04 Arm band placed on Patient placed in waiting room. db 16:05 Paramjit Ulrich PA is PHCP. cp 16:05 Colten Porter MD is Attending Physician. cp 16:22 First set of blood cultures drawn by sc. ty 16:40 Inserted saline lock: 20 gauge in left antecubital area, using aseptic technique. Blood ty collected. Flushed with 10 mL NS. 16:40 Initial lab(s) drawn, by sc, sent to lab. Second set of blood cultures drawn by me. ty 16:50 Blood Culture Adult (2) Sent. ty 16:50 CBC with Diff Sent. ty 16:50 CMP Sent. ty 16:50 Lactate w/ 2H reflex if indic. Sent. ty 16:50 Protime (+inr) Sent. ty 16:50 Ptt, Activated Sent. ty 17:24 Jory Stone, RN is Primary Nurse. me1 17:27 XRAY Hand RIGHT 3 View In Process Unspecified. EDMS 17:29 called [facility] transfer Center talked to Jamar. sp 17:30 Patient has correct armband on for positive identification. Bed in low position. Call me1 light in reach. Side rails up X2. Provided Education on: POC. Verbalized understanding.. Client placed on continuous cardiac and pulse oximetry monitoring. NIBP monitoring applied. clinical research monitor on. Pulse ox on. NIBP on. 17:53 No provider procedures requiring assistance completed. EKG done, by ED staff, reviewed me1 by Paramjit CARROLL. 19:[address] Naveed Russell accepted pt 1857 Admin approval to [facility] by Jamar peraza Prosenski, TC to bed 1147 report number [phone] faxed demographics. 20:08 Patient transferred, IV remains in place. me1 20:55 PHCP role handed off by Paramjit Ulrich PA lg3 20:55 Attending Physician role handed off by Colten Porter MD lg3 20:55 Primary Nurse role handed off by Jory Stone, RN lg3 20:55 Jory Stone, RN is Primary Nurse. me1 Administered Medications: 17:41 Drug: Insulin Regular Human IVP 10 units IVP once {Co-Signature: rs5 (Marco A Martinez1 RN).} Route: IVP; Site: left antecubital; 19:18 Follow up: Response: No adverse reaction; Marked relief of symptoms me1 17:41 Drug: vancoMYCIN IVPB 1 grams IVPB once over 2 hrs Route: IVPB; Infused Over: 2 hrs; sc1 Site: left antecubital; 19:41 Follow up: Response: No adverse reaction; IV Status: Completed infusion; IV Intake: me1 250ml 17:41 Drug: fentaNYL (PF) IVP 50 mcg IVP once Route: IVP; Site: left antecubital; me1 17:52 Follow up: Pain 3/10 Adult; Response: No adverse reaction; Pain is decreased me1 19:41 Drug: Piperacillin-Tazobactam IVPB 3.375 grams IVPB once over 60 mins; (mix in NS 100 me1 mL) Route: IVPB; Infused Over: 60 mins; Site: left antecubital; 20:11 Follow up: Response: No adverse reaction; IV Status: Completed infusion; IV Intake: me1 100ml 20:55 Drug: fentaNYL (PF) IVP 50 mcg IVP once Route: IVP; Site: left antecubital; lg3 20:56 Follow up: Response: No adverse reaction; Medication Administered at Departure lg3 Medication: 20:08 VIS not applicable for this client. me1 Point of Care Testing: Blood Glucose: 16:07 Blood Glucose: 438 mg/dL; db Ranges: Intake: 19:41 IV: 250ml; Total: 250ml. me1 20:11 IV: 100ml; Total: 350ml. me1 Outcome: 17:45 ER care complete, transfer ordered by . cp 20:08 Transferred by ground EMS to [facility], Transfer form completed. me1 Note: Report called to Irma MITCHELL at [facility], going to room 2515 20:08 Condition: stable 20:08 Instructed on the need for transfer, 20:49 Patient left the ED. me1 20:55 Patient left the ED. me1 Signatures: Dispatcher [employer] EDMS Lizzy Flores Mary, Reg Reg mr Paramjit Ulrich PA PA cp Able, Lacie, RN RN lg3 Leana Han, STEPHEN RN db Jory Stone, STEPHEN RN me1 Brodie Hendrickson Ricky RN rs5 Corrections: (The following items were deleted from the chart) 17:54 16:01 Chief complaint: Patient states: RIGHT HAND SWELLING AND PAIN X 2 DAYS STATES HAD me1 A CUT YESTERDAY GOT WORSE AND TODAY WITH REDNESS. NOTED WOUND TO RIGHT MIDDLE FINGER WITH SMALL YELLOW OOZING. NOTED RIGHT HAND IS SWOLLEN. STATES HAPPENED TO LEFT HAND AND HAS PARTIAL FINGER AMPUTATION OF LEFT MIDDLE FINGER. HX OF DIABETES. db
--- NOTE | 2024-04-19 17:46 | EDPHYS ---
Physician Documentation [facility] Name: Pepe Cabrera Age: 53 yrs Sex: Male : 1970 Arrival Date: 04/19/2024 Time: 15:54 Bed 17 Private MD: ED Physician HPI: 04/19 16:15 This 53 yrs old Male presents to ER via Wheelchair with complaints of Infected hand. 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 - Infectious Disease History:: Denies. - Social history:: Smoking status: unknown. ROS: 16:20 Constitutional: Negative for body aches, chills, fever, poor PO intake, cp 16:20 MS/extremity: Positive for pain, swelling, tenderness, of the right hand, 16:20 All other systems are negative, cp Exam: 16:25 Constitutional: The patient appears in no acute distress, alert, awake, cp non-diaphoretic, non-toxic, well developed, well nourished, uncomfortable, 16:25 Head/Face: Normocephalic, atraumatic. cp 17:50 ECG was reviewed by the Attending Physician. cp Vital Signs: 16:01 BP 135 / 88; Pulse 103; Resp 18; Temp 98; Pulse Ox 98% ; Weight 117.93 kg; Height 6 ft. db 0 in. ; 17:52 Pain 3/10; me1 18:00 BP 135 / 79; Pulse 97; Resp 19; Pulse Ox 97% ; me1 19:00 BP 155 / 95; Pulse 94; Resp 19; Pulse Ox 100% ; me1 20:00 BP 152 / 91; Pulse 97; Resp 16; Pulse Ox 97% ; me1 20:30 BP 145 / 76; Pulse 97; Resp 16; Temp 98.3; Pulse Ox 97% ; me1 16:01 Body Mass Index 35.26 (117.93 kg, 182.88 cm) db 17:52 Pain Scale: Adult me1 MDM: 16:06 Medical Screening Exam initiated cp 17:45 Data reviewed: vital signs, nurses notes, lab test result(s), radiologic studies, plain cp films. 04/19 16:07 Order name: Blood Culture Adult (2) cp 04/19 16:07 Order name: CBC with Diff; Complete Time: 17:40 cp 04/19 16:07 Order name: CMP; Complete Time: 17:40 cp 04/19 17:43 Interpretation: Normal except: NA 129; GLUC 452; BUN 28; CRE 1.49; GFR 56; ALK 189; TP cp 8.4; ALB 3.0; GLOB 5.4; A/G 0.6. 04/19 16:07 Order name: Lactate w/ 2H reflex if indic.; Complete Time: 17:40 cp 04/19 16:07 Order name: Protime (+inr); Complete Time: 17:40 cp 04/19 16:07 Order name: Ptt, Activated; Complete Time: 17:40 cp 04/19 16:07 Order name: Urinalysis w/ reflexes cp 04/19 16:19 Order name: Glucose, Ancillary Testing; Complete Time: 17:04 EDMS 04/19 19:25 Order name: Glucose, Ancillary Testing EDMS 04/19 17:04 Order name: XRAY Hand RIGHT 3 View; Complete Time: 18:35 cp 04/19 16:07 Order name: Accucheck; Complete Time: 16:08 cp 04/19 16:07 Order name: Cardiac monitoring; Complete Time: 17:53 cp 04/19 16:07 Order name: EKG - Nurse/Tech; Complete Time: 17:53 cp 04/19 16:07 Order name: IV Saline Lock - Large Bore; Complete Time: 16:50 cp 04/19 16:07 Order name: Labs collected and sent; Complete Time: 16:50 cp 04/19 16:07 Order name: O2 Per Protocol; Complete Time: 16:50 cp 04/19 16:07 Order name: O2 Sat Monitoring; Complete Time: 17:53 cp 04/19 16:07 Order name: Vital Signs; Complete Time: 16:50 cp 04/19 18:38 Order name: Accucheck Blood Glucose; Complete Time: 19:13 cp EC:50 Rate is 94 beats/min. Rhythm is regular. MS interval is normal. QRS interval is normal. cp QT interval is normal. T waves are Inverted in lead aVR. Interpreted by me. Reviewed by me. Administered Medications: 17:41 Drug: Insulin Regular Human IVP 10 units IVP once {Co-Signature: rs5 (Marco A Martinez me1 RN).} Route: IVP; Site: left antecubital; 19:18 Follow up: Response: No adverse reaction; Marked relief of symptoms me1 17:41 Drug: vancoMYCIN IVPB 1 grams IVPB once over 2 hrs Route: IVPB; Infused Over: 2 hrs; me1 Site: left antecubital; 19:41 Follow up: Response: No adverse reaction; IV Status: Completed infusion; IV Intake: me1 250ml 17:41 Drug: fentaNYL (PF) IVP 50 mcg IVP once Route: IVP; Site: left antecubital; me1 17:52 Follow up: Pain 3/10 Adult; Response: No adverse reaction; Pain is decreased me1 19:41 Drug: Piperacillin-Tazobactam IVPB 3.375 grams IVPB once over 60 mins; (mix in NS 100 me1 mL) Route: IVPB; Infused Over: 60 mins; Site: left antecubital; 20:11 Follow up: Response: No adverse reaction; IV Status: Completed infusion; IV Intake: me1 100ml 20:55 Drug: fentaNYL (PF) IVP 50 mcg IVP once Route: IVP; Site: left antecubital; lg3 20:56 Follow up: Response: No adverse reaction; Medication Administered at Departure lg3 Point of Care Testing: Blood Glucose: 16:07 Blood Glucose: 438 mg/dL; db Ranges: Critical Glucose Levels:Adult <50 mg/dl or >400 mg/dl <40 mg/dl or >180 mg/dl Disposition: 04/20 09:09 Co-signature as Attending Physician, Colten Porter MD I reviewed the patient's care rn provided by the Advanced Practice Provider and agree with the diagnosis and treatment plan. Disposition Summary: 04/19/24 17:45 Transfer Ordered Notes: Transfer Location: [facility] cp Reason: Higher level of care cp Condition: Stable cp Problem: new cp Symptoms: have improved cp Accepting Physician: DR Naveed Sweet(04/19/24 20:55) me1 Diagnosis - Diabetes mellitus due to underlying condition with hyperglycemia cp - Cellulitis of right upper limb - right hand cp Forms: - Medication Reconciliation Form cp - SBAR form cp Signatures: Dispatcher [employer] EDMS Colten Porter MD MD rn Page, Corey, PA PA cp Able, Lacie RN RN lg3 Leana Han, RN RN db Jory Stone, RN RN me1 Marco A Martinez RN rs5 Corrections: (The following items were deleted from the chart) 04/19 16:07 16:07 BLOOD CULTURE*+BA.LAB.BRZ ordered. EDMS EDMS 16:07 16:07 CBC+H.LAB.BRZ ordered. EDMS EDMS 16:07 16:07 COMPREHENSIVE METABOLIC PANEL+C.LAB.BRZ ordered. EDMS EDMS 16:07 16:07 LACTATE+C.LAB.BRZ ordered. EDMS EDMS 16:07 16:07 PROTIME (+INR)+COAG.LAB.BRZ ordered. EDMS EDMS 16:07 16:07 PTT, ACTIVATED+COAG.LAB.BRZ ordered. EDMS EDMS 16:07 16:07 Urinalysis+U.LAB.BRZ ordered. EDMS EDMS 16:08 16:07 Accucheck ordered. db db 18:40 17:45 DR cp cp 19:00 16:25 MS/extremity: Positive for pain, swelling, tenderness, of the right hand, cp cp 19:00 16:25 Constitutional: Negative for body aches, chills, fever, poor PO intake, cp cp 20:49 18:40 DR Naveed Sweet cp me1 20:55 20:49 DR Naveed Sweet me1 me1
--- NOTE | 2024-04-19 18:20 | RAD REPORT ---
EXAM: XR Hand Right 3 View HISTORY: [facility] MAIN Pain;Swelling Bed Name: [id number] COMPARISON: None TECHNIQUE: 3 radiographic views of the RIGHT hand submitted. FINDINGS: No evidence of acute fracture or dislocation. Joint alignment is maintained. Soft tissue s welling most pronounced along the third digit and dorsum of the hand. Curvilinear mildly hyperdense structure within the soft tissues of the fourth digit middle phalanx volar aspect, may relate to an e mbedded foreign body. No significant degenerative changes are present. IMPRESSION: Soft tissue swelling as above. Small curvilinear hyperdense structure within soft tissues of the four th digit middle phalanx volar aspect may relate to an embedded foreign body. No acute osseous abnormality.
[2024-04-19] MEDS ORDERED: PIPERACIL/TAZO 3.375 GM VIAL IV ONE (18:22)
[2024-04-19] MEDS ORDERED: NA CHLORIDE 0.9% 100 ML ONE (18:22)
[2024-04-19 19:30] LABS: Specific Gravity > 1.030 (1.005-1.030); Sqamous Epithelial <5 /HPF (None Seen); Urine Bacteria <20 /HPF (<20); Urine Bilirubin NEGATIVE (Negative); Urine Blood 1+ (Negative); Urine Clarity Clear (Clear); Urine Color Colorless (Yellow); Urine Culture Reflex Order NOT NEEDED; Urine Glucose 4+ (Over) (Negative); Urine Ketones NEGATIVE (Negative); Urine Microscopic Reflex YN ORDER UMIC; Urine Nitrite NEGATIVE (Negative); Urine Protein 1+ (Negative); Urine RBC <5 /HPF (None Seen); Urine Urobilinogen Normal (Normal); Urine WBC <5 /HPF (<5); Urine pH 5.5 (5.0-7.0)
[2024-04-21 16:16] VITALS: BP 145/76; TEMP 98.3; O2SAT 97
--- NOTE | 2024-04-23 12:09 | EKG ---
Test Date: 2024-04-19 Test Time: 17:48:08 Team Psychologist: MEASUREMENT RESULTS: Intervals: Rate: 94 CT: 172 QRSD: 96 QT: 350 QTc: 437 [place]: P: 64 CT: 172 QRS: 38 T: 52 INTERPRETIVE STATEMENTS: Normal sinus rhythm Normal ECG Compared to ECG 05/15/2016 07:14:57 T-wave abnormality no longer present Electronically Signed On 04-23-24 12:07:41 PLASTIC CABLEMAKING MACHINE OPERATOR by Carloz Lentz
== END 2024-04-19 20:55 | disposition short-term general hospital (02) ==
LOC: ER 15:54
DX: L03.113 Cellulitis of right upper limb (principal); E11.65 Type 2 diabetes mellitus with hyperglycemia; I10 Essential (primary) hypertension; E78.00 Pure hypercholesterolemia, unspecified; Z88.2 Allergy status to sulfonamides
CPT/HCPCS: 36415; 80053; 81001; 82947; 83605; 85025; 85610; 85730; 87040; 87077; 87186; 87205; 93005; 96365; 96367; 96375; 99285; J2543; J3010; J7050